=== PATIENT | female | born 1950 | race Caucasian/White ===

== ENCOUNTER 2016-06-30 10:35 | Outpatient (CLI) | payer OTHER ==
--- NOTE | 2016-06-30 10:58 | DIAGNOSTIC IMAGING REPORT ---
PROCEDURE: DEXA BONE DENSITY STUDY CLINICAL INDICATION: SCREENING FOR OSTEOPOSIS COMPARISON: DEXA dated 05/11/04 FINDINGS: LUMBAR SPINE: Bone mineral density 0.902 g/cm2, T score -1.3 osteopenia which represents a of 3.8% decrease from the previous study LEFT HIP: Bone mineral density 0.912 g/cm2, T score -0.2 normal which represents a 5.8% decrease from the previous study LEFT FEMORAL NECK: Bone mineral density 0.701 g/cm2, T score -1.3 osteopenia which represents a 6.6% decrease from previous study FRACTURE RISK CALCULATION ( when applicable): 10-year fracture risk of a major osteoporotic fracture 8.8 % and of a hip fracture 0.9% (T score greater or equal to -1.0 to: NORMAL) (T score from -1.1 to -2.4: OSTEOPENIA) (T score ess than or equal to -2.5: OSTEOPOROSIS) IMPRESSION: 1. Osteopenia lumbar spine and femoral neck with a at 10-year major fracture risk of 8.8% and a hip fracture risk of 0.9%
== END 2016-06-30 23:00 ==
LOC: XR SRH 10:35
DX: M85.88 Other specified disorders of bone density and structure, other site (principal)